=== PATIENT | female | born 2000 | race American Indian/Alaskan Native ===

== ENCOUNTER 2019-09-30 14:46 | Emergency (ER) | payer SELFPAY ==
[2019-09-30 15:12] VITALS: BP 113/82
--- NOTE | 2019-09-30 17:12 | Event Note ---
ED Screening Note ED Screening Note: states she is concerned she is states that she had a menstrual cycle approximately 09/01/2019 states she has had some light spotting no abd pain has not taken a test pmhx none no allergies to meds This initial assessment/diagnostic orders/clinical plan/treatment(s) is/are subject to change based on patients health status, clinical progression and re- assessment by fellow clinical providers in the ED. Further treatment and workup at subsequent clinical providers discretion. Patient/guardian urged not to elope from the ED as their condition may be serious if not clinically assessed and managed. Initial orders include: UA, urine preg
[2019-09-30 17:40] LABS: Bacteria,Urine 1+ /HPF (Negative); Mucus,Urine 1+ /HPF; WBC,Urine < 1.0 /HPF (0.0-6.0)
[2019-09-30 17:43] LABS: HCG Qualitative,Urine Negative (Negative)
[2019-09-30 17:52] LABS: Bilirubin,Urine NEG (Negative); Blood,Urine NEG (Negative); Color,Urine Yellow (Yellow); Protein,Urine <15 mg/dL mg/dL (Negative)
== END 2019-09-30 19:30 | disposition left against medical advice (07) ==
LOC: ED 14:46
DX: N93.9 Abnormal uterine and vaginal bleeding, unspecified (principal); Z53.21 Procedure and treatment not carried out due to patient leaving prior to being seen by health care provider
CPT/HCPCS: 81001; 81025